=== PATIENT | male | born 1995 | race Two or more races ===

== ENCOUNTER 2025-04-08 21:20 | Emergency (ER) | payer OTHER, SELFPAY ==
[2025-04-08 21:23] VITALS: BMI 26.6
[2025-04-08 21:32] VITALS: BP 137/82; BP 142/106; PULSE 105; RESP 18; TEMP 37.5; O2SAT 95
--- NOTE | 2025-04-08 21:38 | XR_ITS ---
Examination: PA lateral chest 2 views TECHNIQUE: Upright PA lateral chest 2 views Date and time: April 08, 2025, 9:42 PM INDICATIONS: Cough and chest pain beginning one week ago FINDINGS: Normal heart size. Lungs are clear. The osseous structures are intact IMPRESSION: No active disease
[2025-04-08 23:00] LABS: COVID-19 Antigen (In-House) Negative (Negative)
[2025-04-08 23:18] VITALS: RESP 18
--- NOTE | 2025-04-09 05:00 | EDNOTE_ITS ---
<Statement entered by Ivette Pelletier MD - 04/09/25 05:50> As co-signing physician, I was present and available for consult prn. I concur with the plan and care as documented by the midlevel provider. Upper Respiratory Inf. RME/HPI General Chief Complaint: Shortness of Breath/Dyspnea Stated Complaint: SOB Time Seen by Provider: 04/08/25 21:38 Arrival date/time: 04/08/25 21:20 29M with no significant PMH presents to ED with several days of cough and some SOB. Limitations: no limitations Related Data Allergies Allergy/AdvReac Type Severity Reaction Status Date / Time No Known Allergies Allergy Verified 04/08/25 23:18 Review of Systems Review of Systems Systems Reviewed: All systems reviewed, normal except as documented Constitutional Constitutional: Reports system reviewed and no additional complaints, except as documented, Denies fever(s) and Denies headache(s) ENT Ears, Nose, Mouth, and Throat: Denies disequilibrium and Denies headache(s) Cardiovascular Cardiovascular: Reports system reviewed and no additional complaints, except as documented, Denies chest pain and Reports dyspnea Respiratory Respiratory: Reports system reviewed and no additional complaints, except as documented, Reports as per HPI, Reports cough and Reports dyspnea Gastrointestinal Gastrointestinal: Reports system reviewed and no additional complaints, except as documented, Denies abdominal pain, Denies nausea and Denies vomiting Neurologic Neurologic: Reports system reviewed and no additional complaints, except as documented, Denies confusion, Denies disequilibrium and Denies headache(s) Psychiatric Psychiatric: Denies confusion Past Medical History Social History SMOKING STATUS: Never smoker ED Exam General Limitations: Present no limitations General appearance: Present alert and in no apparent distress Head Head exam: Present atraumatic Eye Eye exam: Present normal appearance, PERRL and EOMI ENT ENT exam: Present normal exam, normal oropharynx and mucous membranes moist Neck Neck exam: Present normal inspection, full ROM and trachea midline Chest Chest inspection: Present normal inspection and symmetric chest wall rise Respiratory Respiratory exam: Present normal lung sounds bilaterally Cardiovascular Cardiovascular exam: Present regular rate, normal rhythm and normal heart sounds Abdominal Exam Abdominal exam: Present soft and normal bowel sounds Extremities Exam Extremities exam: Present normal inspection and full ROM Back Exam Back exam: Present normal inspection and full ROM Neurological Exam Neurological exam: Present alert, oriented X3 and CN II-XII intact Psychiatric Psychiatric exam: Present normal affect and normal mood Skin Skin exam: Present warm, dry, intact and normal color Course Quality Measures none Orders Category Date Time Status Bedside Influenza A&B Antigen Test NOW Care 04/08/25 21:38 Completed XR chest 2V Stat Exams 04/08/25 21:38 Completed COVID-19 Antigen (In-House) Stat Lab 04/08/25 21:42 Completed Vital Signs Vital signs: Vital Signs Temperature 99.5 F 04/08/25 21:32 Pulse Rate 105 H 04/08/25 21:32 Respiratory Rate 18 04/08/25 21:32 Blood Pressure 142/106 H 04/08/25 21:32 Pulse Oximetry (%) 95 04/08/25 21:32 Oxygen Delivery Method Room Air 04/08/25 21:32 O2 at 95% on RA and WNLs Upper Respiratory Infection MDM Narrative MDM Narrative:: 29M with no significant PMH presents to ED with several days of cough and some SOB. Physical exam reveals clear lungs and oropharynx. Normal WOB. Patient is afebrile, calm, and alert. Swabs neg. CXR neg. Likely viral URI. Patient data External records reviewed:: None Clinical information provided by:: patient Social determinants that could affect healthcare access:: none Patient has the following chronic illnesses:: none How is presenting disease/condition affected by chronic disease/condition?: no chronic disease Evaluation data The following diagnostics were reviewed and interpreted by me:: lab results and radiology exam(s) Lab and/or radiology exams considered but not ordered:: ordered Interpretation Summary: above Medications / Prescriptions Medications or Prescriptions considered but not ordered:: not ordered Medication administrations:: n/a Consultations Consultation(s) initiated? (list below): No Diagnosis Upper Respiratory Differential Diagnosis: upper respiratory infection, croup, otitis media, sinusitis, viral infection, bronchitis, influenza, pharyngitis and other Most likely diagnosis given after review of the tests above:: URI Admission Indicated Admission indicated?: not indicated Admission Request Was there a request for admission?: No Disposition Plan Disposition Plan: Discharge Discharge Attestation Discharge Attestation: The patient and all family members were given an opportunity to ask questions and understood the discharge instructions. Discharge instructions specifically effects, indications for sooner follow up or return to the emergency department, and the expected course of current diagnosis. Patient condition: Stable Discharge Plan Plan Patient Disposition: HOME (Self Care) Discharge Disposition comment: Stable Prescriptions/Referrals Referrals: No Primary/Family,Physician [Primary Care Provider] - In 1 week Problem List Clinical Impression: URI (upper respiratory infection) Patient/Caregiver Discharge Instructions Education Materials: ED URI, Viral, No Abx (Adult) Additional Instructions: Please follow-up with PCP within 24-48 hours and return immediately if symptoms worsen. Ibuprofen/Tylenol can be used simultaneously for greater fever/pain control. Benadryl is good for cough, congestion, and sleep. Print Language: Yoruba Stand Alone Forms: Patient Portal Info Letter PA/PUBLIC HEALTH NURSE Supervising Physician PA/PUBLIC HEALTH NURSE Supervising Physician: Dr. Pelletier
== END 2025-04-08 23:19 | disposition home or self-care (01) ==
PROVIDERS: Physician Assistant; Emergency Provider Emergency Medicine
DX: J06.9 Acute upper respiratory infection, unspecified (principal)
CPT/HCPCS: 71046; 87400; 87811; 99283